=== PATIENT | female | born 1990 | race Caucasian/White ===

== ENCOUNTER 2019-12-25 01:27 | Outpatient (CLI) | payer MEDICAID, SELFPAY ==
[2019-12-25 09:03] LABS: ALT 37 U/L (14-59); AST 20 U/L (15-37); Albumin 4.1 g/dL (3.4-5.0); Alkaline Phosphatase 49 U/L (46-116); Anion Gap 9.5 mmol/L (3-11); BUN 15 mg/dL (7-18); Bilirubin, Total 0.5 mg/dL (0.2-1.0); CO2 27.5 mmol/L (21.0-32.0); Calcium 9.2 mg/dL (8.5-10.1); Calculated LDL 168 mg/dL (<100); Chloride 103 mmol/L (98-107); Cholesterol 240 mg/dL (<200); Glucose 112 mg/dL (74-106); HDL Cholesterol 36 mg/dL (40-60); Potassium 3.6 mmol/L (3.5-5.1); Sodium 140 mmol/L (136-145); Total Protein 7.7 g/dL (6.4-8.2); Triglyceride 181 mg/dL (<150)
== END 2019-12-25 01:47 ==
DX: Z13.220 Encounter for screening for lipoid disorders (principal); R12 Heartburn; R63.8 Other symptoms and signs concerning food and fluid intake
CPT/HCPCS: 36415; 80053; 80061

== ENCOUNTER 2019-12-25 09:24 | Outpatient (REF) | payer MEDICAID, SELFPAY ==
--- NOTE | 2019-12-25 09:00 | PAPFT_PTH ---
PATIENT: Heather Yung LOC: [facility] U#:[id number] AGE/SX: 29/F ROOM: RE12/25/[address]: RUTHIE Kelly : 1990 BED: DIS: 12/25/2019 SPEC #: [id number] RECD: 12/25/19 12:56 STATUS: ELISA REQ #: [id number] CHANTEL: 12/25/19 09:[address]: Asia Pablo DEPT: [facility] Cytology RECD BY: Saima Newman ENTERED: 12/25/19 12:56 SP TYPE: PAPFT OTHR DR: Lee Ann Helton APRN Tissues: 1 - CX/ENDOCX FOR PAP SMEARS Procedures: PAP THIN PREP/UVM Screening HPV DNA PROBE Comments: [id number]
[2019-12-26 14:52] LABS: Chlamydia Result Negative (Negative); GC Result Negative (Negative)
== END 2019-12-25 09:44 ==
LOC: LBN 09:24
PROVIDERS: Visit Provider Nurse Practitioner Family
DX: Z11.3 Encounter for screening for infections with a predominantly sexual mode of transmission (principal); Z12.4 Encounter for screening for malignant neoplasm of cervix
CPT/HCPCS: 87491; 87591; 88142; 87624

== ENCOUNTER 2020-09-19 01:43 | Outpatient (CLI) | payer MEDICAID, SELFPAY ==
[2020-09-19 12:59] LABS: HCT 42.9 % (36.0-46.0); HGB 14.5 g/dL (11.2-15.7); MCH 30.3 pg (27.0-33.0); MCHC 33.8 % (32.0-36.0); MCV 89.6 fL (80-95); MPV 8.9 fL (8.0-11.0); Platelet Count 348 10^3/uL (130-400); RBC 4.79 10^6/uL (3.93-5.22); RDW 11.7 % (11.7-14.6); RDW-SD 38.4 fL; WBC 9.74 10^3/uL (4.4-10.8)
[2020-09-19 13:18] LABS: ALT 38 U/L (14-59); AST 16 U/L (15-37); Albumin 4.1 g/dL (3.4-5.0); Alkaline Phosphatase 64 U/L (46-116); Anion Gap 9.3 mmol/L (3-11); BUN 12 mg/dL (7-18); Bilirubin, Total 0.5 mg/dL (0.2-1.0); CO2 27.7 mmol/L (21.0-32.0); Calcium 9.1 mg/dL (8.5-10.1); Calculated LDL 177 mg/dL (<100); Chloride 104 mmol/L (98-107); Cholesterol 247 mg/dL (<200); Glucose 91 mg/dL (74-106); HDL Cholesterol 39 mg/dL (40-60); Potassium 3.8 mmol/L (3.5-5.1); Sodium 141 mmol/L (136-145); TSH (W/Ref FT4) 2.05 uIU/mL (0.36-3.74); Triglyceride 157 mg/dL (<150)
== END 2020-09-19 01:44 | disposition home or self-care (01) ==
LOC: LOS 01:44
PROVIDERS: Visit Provider Nurse Practitioner Family
DX: R12 Heartburn (principal); Z13.220 Encounter for screening for lipoid disorders; Z13.29 Encounter for screening for other suspected endocrine disorder
CPT/HCPCS: 36415; 80053; 80061; 85027; 84443

== ENCOUNTER 2022-05-22 15:10 | Emergency (ER) | payer MEDICAID, SELFPAY ==
[2022-05-22 15:28] VITALS: BP 147/71; PULSE 81; RESP 18; TEMP 36.7; O2SAT 97
[2022-05-22 16:10] LABS: Abs Immature Grans 0.03 10^3/uL (0.0-0.06); Absolute Basophil Count 0.04 10^3/uL (0.0-0.2); Absolute Eosinophil Count 0.11 10^3/uL (0.0-0.7); Absolute Monocyte Count 0.64 10^3/uL (0.1-0.8); Absolute Neutrophil Count 3.86 10^3/uL (1.2-6.7); Basophils % 0.5; Eosinophils % 1.4; HCT 39.5 % (36.0-46.0); HGB 13.3 g/dL (11.2-15.7); Immature Grans % 0.4; Lymphocytes % 41.4; MCHC 33.7 % (32.0-36.0); MCV 89 fL (80-95); MPV 8.8 fL (8.0-11.0); Neutrophils % 48.3; Platelet Count 368 10^3/uL (130-400); RBC 4.44 10^6/uL (3.93-5.22); RDW 12.5 % (11.7-14.6); RDW-SD 41.1 fL; WBC 7.98 10^3/uL (4.4-10.8)
[2022-05-22 16:26] LABS: ALT 36 U/L (14-59); AST 22 U/L (15-37); Albumin 4.1 g/dL (3.4-5.0); Alkaline Phosphatase 71 U/L (46-116); Anion Gap 9.3 mmol/L (3-11); BUN 15 mg/dL (7-18); Bilirubin, Total 0.2 mg/dL (0.2-1.0); CO2 28.7 mmol/L (21.0-32.0); CREATININE 0.9 mg/dL (0.55-1.02); Chloride 103 mmol/L (98-107); Estimated GFR 86.03 (mL/min/1.73m2); Glucose 96 mg/dL (74-106); Potassium 3.7 mmol/L (3.5-5.1); Sodium 141 mmol/L (136-145); Total Protein 8.4 g/dL (6.4-8.2)
[2022-05-22] MEDS: Ondansetron O.D.T. 4 MG TABEF PO (16:53)
[2022-05-22 17:01] LABS: Bilirubin Negative (Negative); Blood Moderate (Negative); Clarity Clear (Clear); Glucose Negative (Negative); Ketones Negative (Negative); Leukocyte Esterase Negative (Negative); Nitrite Negative (Negative); Specific Gravity 1.015 (1.005-1.025); Urobilinogen 0.2 EU/dL (Up TO 0.2); pH 5.5 (5-8)
[2022-05-22 17:09] LABS: Bacteria Negative HPF (Negative); C & S Indicated? No; Casts Negative LPF (Negative); Crystals Negative HPF (Negative); Epithelial Cells Few HPF (Negative); Mucus Negative (Negative)
--- NOTE | 2022-05-22 17:38 | W.ED.GENAD ---
Discharge Plan Disposition Patient Disposition: Home Condition: Stable Discharge Details Clinical Impression: Menorrhagia Primary Care Provider: Onesimo Harry ED Provider: Tray Mcmillan Home Meds and New Rx's Prescriptions: Continued buspirone 7.5 mg tablet 7.5 mg PO BID Qty: 180 4RF fluoxetine 20 mg capsule 20 mg PO DAILY Qty: 90 2RF Discharge Instructions Instructions: Menorrhagia (ED) Additional Instructions: Continue to monitor symptoms and return immediately to the emergency department for any new or significant worsening of your condition. Otherwise take it easy over the next couple days for activity level and you may take acetaminophen as needed for menstrual cramping. We have placed a referral for you to follow-up preferably early next week with [facility] but if you again have worsening return to the ED. Referrals: [facility] [Provider Group] - 5 days Discharge Data Discharge Date/Time-TO BE ENTERED AT DEPARTURE: 05/22/22 18:02 Medical Decision Making Patient presenting to the emergency department for chief complaint of heavy menstrual bleeding. Patient states for years she has had heavy menstrual periods especially during the beginning of her menses. Patient reports that recently she has been in contact with [facility] and they have informed her to monitor her symptoms. Yesterday patient had significant amount of cramping which has mostly resolved but then today she started bleeding and has had heavier bleeding than even her normal. She does state some mild nausea malaise and subjective lightheadedness but denies any other symptoms. Physical exam is unremarkable but at this time after discussion we are deferring on vaginal exam. We will plan on checking patient's labs. Did review patient's vital signs and patient has not hypotensive tachycardic or hypoxic at this time. Patient also appears well with no obvious signs of distress. Review of labs show no significant anemia with normal CBC, CMP is also normal, urine only shows blood and no signs of infection and patient is not . Patient is also blood type a positive. Reassessed patient and she did state that she did have to change her pad while here but her menstrual flow does seem to be lessening and patient is not leaking through the pad anymore. I do feel this is reassuring. Again did discuss with patient vaginal exam but given significant history of this and this is not the first time, patient denies any chance of this being a vaginal laceration, and has minimal cramping so I doubt that there is a clot present in the office we again decided to defer vaginal exam and have patient follow-up with [facility] for consideration of beginning of hormonal therapy for menorrhagia. After discussion of diagnosis and plan of care patient has no further needs, questions, or concerns and states clear understanding to return to the emergency department for any worsening symptoms. This documentation was generated using Adeze dictation system, please disregard any oddities of phrase or misspellings. Lab Data Lab results reviewed: Yes I reviewed the patient's lab results. HPI General Mode of arrival: ambulatory. Date/Time Provider Initiated Documentation: 05/22/22 15:39. Limitations to Documentation: no limitations. Information obtained by: RN notes reviewed. History of Present Illness 32 year old F presents to the emergency department with the chief complaint of Heavy menstrual bleeding, described as moderate, severe and similar to prior episodes, with intensity rated at 1. Quality is described as aching (And pelvic cramping), Patient started experiencing this hour(s) (24) and it has been constant. No relieving factors improve symptom(s), No exacerbating factors reported . 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 Review of Systems Constitutional Constitutional: Denies chills, Denies fever(s) and Reports malaise ENT Ears, Nose, Mouth, and Throat: Denies vertigo Cardiovascular Cardiovascular: Denies chest pain, Denies syncope and Denies dyspnea Respiratory Respiratory: Denies cough and Denies dyspnea Gastrointestinal Gastrointestinal: Denies abdominal pain, Denies diarrhea, Reports nausea and Denies vomiting Genitourinary Genitourinary: Reports as per HPI, Reports abnormal vaginal bleeding, Denies metrorrhagia, Denies dyspareunia, Reports dysmenorrhea, Denies dysuria, Denies sexual dysfunction and Denies vaginal discharge Musculoskeletal Musculoskeletal: Denies myalgias Integumentary/Breasts Skin/Breast: Denies rash Neurologic Neurologic: Denies vertigo and Denies syncope PFSH All Active Problems (Updated 05/22/22 @ 17:49 by Tray Mcmillan NP) Menorrhagia (Acute) Encounter for annual physical exam (Acute) Anxiety (Chronic) Screening cholesterol level (Acute) Heartburn (Chronic 11/22/12) Increased body mass index (BMI) (Chronic 11/21/17) 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 Sister No problems noted. Sister No problems noted. Maternal Grandmother , 65 COPD (chronic obstructive pulmonary disease) Daughter No problems noted. Paternal Grandmother , 88 Diabetes Essential hypertension Hyperlipidemia Stroke Lung cancer Son No problems noted. Maternal Grandfather No problems noted. Paternal Grandfather Hyperlipidemia Skin cancer FAMILY HISTORY Fibromyalgia Factor VIII deficiency Social History Smoking/Tobacco Use Status: Never Second Hand Exposure: Yes Smoking risk assessment performed?: Yes Alcohol Intake: former Drug use: Never Substance use type: does not use Caregiver/Support person: No Household members: children Housing: house Communication Needs: None Pets and animals: Yes Pets and animals: cat(s) Sexually active: No Do you think of yourself as: straight/heterosexual Current gender identity: female What is your relationship status?: never How often do you talk on the phone with friends or family?: three or more times per week How often do you get together with friends or relatives?: twice per week How often do you attend druze or congregational services?: decline to answer Do you belong to any clubs or organized social groups?: no Panel score (0-1 are the most socially isolated patients): 1 What type of physical activity do you participate in: walking Duration: < 15 minutes/day Sravani/Jew: None Seatbelt use: always Helmet use: Yes Helmet use: always Drive intox or ride w/intox 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 Do you feel safe at home: Yes Do you feel safe in your relationship?: Yes Female Reproductive History Menstrual control method: none History History 2 Para 2 Hx # Term Pregnancies Multiple births Hx # Pregnancies Ectopic pregnancies AB induced Hx Number of Living Children AB spontaneous Exam Const General: cooperative Orientation: alert, awake and oriented x3 Resp Effort & Inspection: normal respiratory effort and able to speak in complete sentences Auscultation: clear to auscultation bilaterally Cardio Rate: regular rate Rhythm: regular rhythm Heart Sounds: S1 normal and S2 normal GI Palpation: soft, no hepatosplenomegaly, not firm, no guarding, no masses, no pulsatile masses, not rigid, no splenomegaly and nontender Auscultation: normal bowel sounds General: deferred Back/Spine/Pelvis Back: no CVA tenderness Neuro General: patient alert, patient awake, patient oriented x3, gait normal and moves all extremities Course Vital Signs Vital signs: Vital Signs Temperature 36.7 C 05/22/22 15:28 Pulse 81 05/22/22 15:28 Respiratory Rate 18 05/22/22 15:28 Blood Pressure 147/71 H 05/22/22 15:28 Pulse Oximetry 97 05/22/22 15:28 Temperature 36.7 C 05/22/22 15:28 Temperature Source Oral 05/22/22 15:28 Pulse 81 05/22/22 15:28 Respiratory Rate 18 05/22/22 15:28 Respiratory Effort Non-Labored 05/22/22 15:31 Blood Pressure 147/71 H 05/22/22 15:28 Blood Pressure Position Sitting 05/22/22 15:28 Pulse Oximetry 97 05/22/22 15:28 Oxygen Delivery Method Room Air 05/22/22 15:28 Oxygen Flow Rate 0 05/22/22 15:28 Pain Level 1 05/22/22 15:34 Lab/Test Results Lab/Test Results: Laboratory Tests Range/Units 12/31/22 12/31/22 12/31/22 15:54 15:54 15:54 WBC (4.4-10.8) 10^3/uL 7.98 RBC (3.93-5.22) 10^6/uL 4.44 Hgb (11.2-15.7) g/dL 13.3 Hct (36.0-46.0) % 39.5 MCV (80-95) fL 89 MCH (27.0-33.0) pg 30.0 MCHC (32.0-36.0) % 33.7 RDW (11.7-14.6) % 12.5 Plt Count (130-400) 10^3/uL 368 MPV (8.0-11.0) fL 8.8 Immature Gran % 0.4 Neutrophils % 48.3 Lymphocytes % 41.4 Monocytes % 8.0 Eosinophils % 1.4 Basophils % 0.5 Nucleated RBC % (0.0-0.3) % 0.0 Absolute Neutrophils (1.2-6.7) 10^3/uL 3.86 Absolute Lymphocytes (1.2-3.4) 10^3/uL 3.30 Absolute Monocytes (0.1-0.8) 10^3/uL 0.64 Absolute Eosinophils (0.0-0.7) 10^3/uL 0.11 Absolute Basophils (0.0-0.2) 10^3/uL 0.04 Sodium (136-145) mmol/L 141 Potassium (3.5-5.1) mmol/L 3.7 Chloride (98-107) mmol/L 103 Carbon Dioxide (21.0-32.0) mmol/L 28.7 Anion Gap (3-11) mmol/L 9.3 BUN (7-18) mg/dL 15 Creatinine (0.55-1.02) mg/dL 0.9 Est GFR (CKD-EPI 2020) (mL/min/1.73m2) 86.03 Glucose (74-106) mg/dL 96 Calcium (8.5-10.1) mg/dL 9.0 Total Bilirubin (0.2-1.0) mg/dL 0.2 AST (15-37) U/L 22 ALT (14-59) U/L 36 Alkaline Phosphatase (46-116) U/L 71 Total Protein (6.4-8.2) g/dL 8.4 H Albumin (3.4-5.0) g/dL 4.1 Urine Color (Yellow) Urine Clarity (Clear) Urine pH (5-8) Ur Specific [place] (1.005-1.025) Urine Protein (Negative) mg/dL Urine Ketones (Negative) mg/dL Urine Blood (Negative) Urine Nitrite (Negative) Urine Bilirubin (Negative) Urine Urobilinogen (Up TO 0.2) EU/dL Ur Leukocyte Esterase (Negative) Urine RBC (0-2) HPF Urine WBC (0-5) HPF Ur Epithelial Cells (Negative) HPF Urine Crystals (Negative) HPF Urine Bacteria (Negative) HPF Urine Casts (Negative) LPF Urine Mucus (Negative) Ur Culture Indicated? Urine Glucose (Negative) mg/dL Patient ABO/Rh A Positive Antibody Screen NEGATIVE Range/Units 05/22/22 16:52 WBC (4.4-10.8) 10^3/uL RBC (3.93-5.22) 10^6/uL Hgb (11.2-15.7) g/dL Hct (36.0-46.0) % MCV (80-95) fL MCH (27.0-33.0) pg MCHC (32.0-36.0) % RDW (11.7-14.6) % Plt Count (130-400) 10^3/uL MPV (8.0-11.0) fL Immature Gran % Neutrophils % Lymphocytes % Monocytes % Eosinophils % Basophils % Nucleated RBC % (0.0-0.3) % Absolute Neutrophils (1.2-6.7) 10^3/uL Absolute Lymphocytes (1.2-3.4) 10^3/uL Absolute Monocytes (0.1-0.8) 10^3/uL Absolute Eosinophils (0.0-0.7) 10^3/uL Absolute Basophils (0.0-0.2) 10^3/uL Sodium (136-145) mmol/L Potassium (3.5-5.1) mmol/L Chloride (98-107) mmol/L Carbon Dioxide (21.0-32.0) mmol/L Anion Gap (3-11) mmol/L BUN (7-18) mg/dL Creatinine (0.55-1.02) mg/dL Est GFR (CKD-EPI 2020) (mL/min/1.73m2) Glucose (74-106) mg/dL Calcium (8.5-10.1) mg/dL Total Bilirubin (0.2-1.0) mg/dL AST (15-37) U/L ALT (14-59) U/L Alkaline Phosphatase (46-116) U/L Total Protein (6.4-8.2) g/dL Albumin (3.4-5.0) g/dL Urine Color (Yellow) Yellow Urine Clarity (Clear) Clear Urine pH (5-8) 5.5 Ur Specific [place] (1.005-1.025) 1.015 Urine Protein (Negative) mg/dL Negative Urine Ketones (Negative) mg/dL Negative Urine Blood (Negative) Moderate H Urine Nitrite (Negative) Negative Urine Bilirubin (Negative) Negative Urine Urobilinogen (Up TO 0.2) EU/dL 0.2 Ur Leukocyte Esterase (Negative) Negative Urine RBC (0-2) HPF 5-10 H Urine WBC (0-5) HPF 3-5 Ur Epithelial Cells (Negative) HPF Few Urine Crystals (Negative) HPF Negative Urine Bacteria (Negative) HPF Negative Urine Casts (Negative) LPF Negative Urine Mucus (Negative) Negative Ur Culture Indicated? No Urine Glucose (Negative) mg/dL Negative Patient ABO/Rh Antibody Screen POC- Test(urine) Negative
[2022-05-22 18:01] VITALS: BP 129/67; PULSE 74; RESP 16; O2SAT 95
--- NOTE | 2022-05-23 08:20 | NUR.NOTE ---
Nursing Note: referral to [facility]
--- NOTE | 2022-05-25 10:54 | PDOC.ERCMACT ---
- If Service Date Differs Date of service: 05/25/22 Time of Service: 10:54 Care Management Activity Note Heather is seen in the ED for heavy menses. At the request of ED provider, CM coordinates a referral to [facility] to assist Heather in obtaining an appointment for further evaluation and treatment.
== END 2022-05-22 18:02 | disposition home or self-care (01) ==
PROVIDERS: Emergency Provider Nurse Practitioner Family; PCP Nurse Practitioner Family
DX: N92.0 Excessive and frequent menstruation with regular cycle (principal)
CPT/HCPCS: 36415; 80053; 81025; 86850; 86900; 86901; 99283; 81003; 81015; 85025; 99284

== ENCOUNTER 2022-06-03 04:10 | Outpatient (CLI) | payer MEDICAID, SELFPAY ==
[2022-06-03 09:30] LABS: HCT 39.9 % (36.0-46.0); HGB 13.1 g/dL (11.2-15.7); MCH 29.9 pg (27.0-33.0); MCHC 32.8 % (32.0-36.0); MCV 91 fL (80-95); Platelet Count 446 10^3/uL (130-400); RBC 4.38 10^6/uL (3.93-5.22); RDW 12.5 % (11.7-14.6); RDW-SD 41.2 fL; WBC 9.52 10^3/uL (4.4-10.8)
[2022-06-03 09:51] LABS: ALT 25 U/L (14-59); AST 16 U/L (15-37); Albumin 3.7 g/dL (3.4-5.0); Alkaline Phosphatase 64 U/L (46-116); Anion Gap 7.3 mmol/L (3-11); BUN 12 mg/dL (7-18); Bilirubin, Total 0.3 mg/dL (0.2-1.0); CO2 28.7 mmol/L (21.0-32.0); CREATININE 0.9 mg/dL (0.55-1.02); Calcium 8.8 mg/dL (8.5-10.1); Calculated LDL 203 mg/dL (<100); Chloride 102 mmol/L (98-107); Cholesterol 278 mg/dL (<200); Estimated GFR 86.03 (mL/min/1.73m2); Glucose 111 mg/dL (74-106); HDL Cholesterol 45 mg/dL (40-60); Potassium 3.8 mmol/L (3.5-5.1); Sodium 138 mmol/L (136-145); TSH (W/Ref FT4) 1.73 uIU/mL (0.36-3.74); Total Protein 7.8 g/dL (6.4-8.2); Triglyceride 152 mg/dL (<150)
[2022-06-08 08:59] LABS: Factor V Leiden(R506Q) Mut Negative (Negative)
== END 2022-06-03 04:11 | disposition home or self-care (01) ==
LOC: LBO 04:10
PROVIDERS: PCP Nurse Practitioner Family; Visit Provider Obstetrics & Gynecology
DX: N92.0 Excessive and frequent menstruation with regular cycle (principal); R53.83 Other fatigue; E78.89 Other lipoprotein metabolism disorders; Z83.2 Family history of diseases of the blood and blood-forming organs and certain disorders involving the immune mechanism; R73.09 Other abnormal glucose
CPT/HCPCS: 36415; 80053; 80061; 81241; 85027; 84443

== ENCOUNTER 2023-10-10 05:24 | Outpatient (CLI) | payer MEDICAID, SELFPAY ==
[2023-10-10 07:59] LABS: ALT 52 U/L (14-59); AST 18 U/L (15-37); Alkaline Phosphatase 65 U/L (46-116); Anion Gap 10.9 mmol/L (3-11); BUN 10 mg/dL (7-18); Bilirubin, Total 0.5 mg/dL (0.2-1.0); CO2 27.1 mmol/L (21.0-32.0); CREATININE 0.9 mg/dL (0.55-1.02); Calcium 9.1 mg/dL (8.5-10.1); Calculated LDL 77 mg/dL (<100); Chloride 99 mmol/L (98-107); Cholesterol 153 mg/dL (<200); Glucose 159 mg/dL (74-106); HDL Cholesterol 43 mg/dL (40-60); Potassium 3.7 mmol/L (3.5-5.1); Sodium 137 mmol/L (136-145); Total Protein 8.2 g/dL (6.4-8.2); Triglyceride 167 mg/dL (<150)
[2023-10-10 19:35] LABS: Hepatitis C Ab w Rflx HCV PCR Negative (Negative)
== END 2023-10-10 05:25 | disposition home or self-care (01) ==
LOC: LBO 05:25
PROVIDERS: PCP Nurse Practitioner Family; Visit Provider Nurse Practitioner Family
DX: E78.5 Hyperlipidemia, unspecified (principal); Z11.59 Encounter for screening for other viral diseases
CPT/HCPCS: 36415; 80053; 80061; 86803

== ENCOUNTER 2023-12-23 18:25 | Outpatient (REF) | payer BC, SELFPAY ==
[2023-12-23 13:12] LABS: Anion Gap 8.8 mmol/L (3-11); BUN 8 mg/dL (7-18); CO2 28.2 mmol/L (21.0-32.0); CREATININE 0.9 mg/dL (0.55-1.02); Calcium 9.6 mg/dL (8.5-10.1); Chloride 102 mmol/L (98-107); Glucose 108 mg/dL (74-106); Potassium 4.1 mmol/L (3.5-5.1); Sodium 139 mmol/L (136-145)
== END 2023-12-23 18:26 | disposition home or self-care (01) ==
LOC: LBN 18:25
PROVIDERS: PCP Nurse Practitioner Family; Visit Provider Nurse Practitioner Family
DX: E11.9 Type 2 diabetes mellitus without complications (principal)
CPT/HCPCS: 80048

== ENCOUNTER 2024-08-13 13:46 | Outpatient (REF) | payer BC, SELFPAY ==
[2024-08-13 22:23] LABS: COMMENT (LAB VIEW ONLY) 41.21 mg/dL; Microalb ug/mg Crea 32.5 ug/mg Cr
== END 2024-08-13 13:47 | disposition home or self-care (01) ==
LOC: LBN 13:46
PROVIDERS: PCP Nurse Practitioner Family; Visit Provider Nurse Practitioner Family
DX: E11.9 Type 2 diabetes mellitus without complications (principal)
CPT/HCPCS: 82043; 82570

== ENCOUNTER 2025-03-02 14:12 | Outpatient (REF) | payer BC, SELFPAY ==
[2025-03-02 16:36] LABS: ALT 42 U/L (14-59); AST 18 U/L (15-37); Albumin 3.8 g/dL (3.4-5.0); Alkaline Phosphatase 70 U/L (46-116); Anion Gap 9.1 mmol/L (3-11); BUN 12 mg/dL (7-18); Bilirubin, Total 0.4 mg/dL (0.2-1.0); CO2 26.9 mmol/L (21.0-32.0); Calcium 8.7 mg/dL (8.5-10.1); Calculated LDL 113 mg/dL (<100); Chloride 104 mmol/L (98-107); Cholesterol 186 mg/dL (<200); Estimated GFR 84.44 (mL/min/1.73m2); Glucose 105 mg/dL (74-106); HDL Cholesterol 41 mg/dL (>or=50); Potassium 3.9 mmol/L (3.5-5.1); Sodium 140 mmol/L (136-145); Total Protein 7.6 g/dL (6.4-8.2); Triglyceride 160 mg/dL (<150)
[2025-03-02 16:39] LABS: Hemoglobin A1C 6.2 % (<5.7)
== END 2025-03-02 14:13 | disposition home or self-care (01) ==
LOC: LBN 14:12
PROVIDERS: PCP Nurse Practitioner Family; Visit Provider Nurse Practitioner Family
DX: E11.9 Type 2 diabetes mellitus without complications (principal)
CPT/HCPCS: 80053; 80061; 83036

== ENCOUNTER 2025-03-14 09:01 | Outpatient (REF) | payer BC, SELFPAY ==
--- NOTE | 2025-03-14 08:30 | PAPFT_PTH ---
PATIENT: Heather Yung LOC: [facility] U#:[id number] AGE/SX: 35/F ROOM: RE03/14/[address]: Alize Shetty DO : 1990 BED: DIS: 03/14/2025 SPEC #: [id number] RECD: 03/14/25 12:51 STATUS: ELISA REQ #: [id number] CHANTEL: 03/14/25 08:[address]: Alize Shetty DEPT: [facility] Cytology RECD BY: Saima Newman ENTERED: 03/14/25 12:52 SP TYPE: PAPFT OTHR DR: Onesimo Shirley DNP Tissues: 1 - CX/ENDOCX FOR PAP SMEARS Procedures: PAP THIN PREP/UVM Screening HPV DNA PROBE Comments: [id number] (HPV 16 & 18/45)
== END 2025-03-14 09:02 | disposition home or self-care (01) ==
LOC: LBN 09:01
PROVIDERS: PCP Nurse Practitioner Family; Visit Provider Obstetrics & Gynecology
DX: Z12.4 Encounter for screening for malignant neoplasm of cervix (principal)
CPT/HCPCS: 88142; 87624

== ENCOUNTER 2025-03-15 03:14 | Outpatient (CLI) | payer BC, SELFPAY ==
--- NOTE | 2025-03-15 06:15 | DI.MAMMO_ITS ---
Exam(s) MAMMO SCREENING EXAM: MAMMO SCREENING CLINICAL HISTORY: screening,z12.39,family h/o breast ca,z80.3 TECHNIQUE: Mammograms were interpreted according to the usual protocol including computer analysis with CAD system, tomosynthesis and C-view imaging. COMPARISON: No exams were available for comparison. Baseline examination. FINDINGS: The breasts are composed of scattered fibroglandular densities, Breast Density category B. No suspicious masses or suspicious microcalcifications are seen. No skin thickening or abnormal axillary lymph nodes are seen. IMPRESSION: BI-RADS Category 1, Negative mammogram Yearly screening mammography is recommended. Breast Density - Category B - There are scattered areas of fibroglandular density. Breast density Category C or D implies that the patient has dense breast tissue. Dense breast tissue can make it harder to find cancer on a mammogram. Dense breast tissue is also associated with an increased risk of breast cancer. This information about the result of the mammogram report was provided to the patient to raise their awareness. Use this report when you speak with the patient about their risks for breast cancer, which includes their family history. At that time, you may recommend additional screening tests (Ultrasound or MRI) as these tests may add significant information. A negative radiographic report should not delay biopsy if a dominant or clinically suspicious mass is present. Up to ten percent of cancers are not identified on mammography. A negative report may reinforce clinical impression. Adenosis and dense breasts may obscure an underlying neoplasm. False positive reports average 6 to 10%. Patient will receive a letter notifying them of these results.
== END 2025-03-15 03:34 ==
LOC: DI 03:14
PROVIDERS: PCP Nurse Practitioner Family; Visit Provider Nurse Practitioner Family
DX: Z12.31 Encounter for screening mammogram for malignant neoplasm of breast (principal); Z80.3 Family history of malignant neoplasm of breast; R92.323 Mammographic fibroglandular density, bilateral breasts
CPT/HCPCS: 77063; 77067